=== PATIENT | male | born 1965 | race Caucasian/White ===

== ENCOUNTER → 2018-05-23 08:33 | Outpatient (CLI) | payer BC, SELFPAY ==
[2018-05-23 10:04] LABS: Alanine Aminotransferase 56 U/L (12-78); Albumin Level 4.3 gm/dL (3.4-5.0); Albumin/Globulin Ratio 1.3 (1.1-1.8); Alkaline Phosphatase 70 U/L (46-116); Anion Gap 11.2 mEq/L (5-15); Aspartate Amino Transferase 32 U/L (15-37); Bilirubin,Total 1.4 mg/dL (0.2-1.0); Blood Urea Nitrogen 11 mg/dL (7-18); Calcium 9.2 mg/dL (8.5-10.1); Carbon Dioxide 32 mmol/L (21.0-32.0); Chloride 103 mmol/L (98-107); Chol/HDL Ratio 2.9 (1-3.5); Cholesterol 171 mg/dL (140-200); Creatinine,Serum 0.97 mg/dL (0.70-1.30); Estimated Glomerular Filt Rate 81 ml/min (>60); GFR (African American) 98 ML/MIN (>60); Globulin 3.3 gm/dl (1.3-3.2); Glucose 104 mg/dL (74-106); HDL Cholesterol 59 mg/dL (27-67); LDL Cholesterol 89 mg/dL (0-130); Potassium 4.2 mmoL/L (3.5-5.1); Prostate Specific Ag Screen 1.7 ng/mL (0.0-4.0); Sodium 142 mmol/L (136-145); Thyroid Stimulating Hormone 3.01 uIU/ml (0.358-3.740); Total Protein,Serum 7.6 gm/dL (6.4-8.2); Triglycerides 117 mg/dL (30-200); VLDL Cholesterol 23 mg/dL (0-40)
== END ==
PROVIDERS: Visit Provider Internal Medicine
DX: E78.5 Hyperlipidemia, unspecified (principal); E03.9 Hypothyroidism, unspecified; N40.1 Benign prostatic hyperplasia with lower urinary tract symptoms
CPT/HCPCS: 36415; 80053; 80061; 84443; G0103

== ENCOUNTER → 2020-07-10 09:14 | Outpatient (CLI) | payer BC, SELFPAY ==
[2020-07-10 10:40] LABS: Chloride 101 mmol/L (98-107)
[2020-07-10 10:41] LABS: Potassium 4.2 mmoL/L (3.5-5.1); Sodium 141 mmol/L (136-145)
[2020-07-10 10:43] LABS: Alanine Aminotransferase 28 U/L (12-78); Anion Gap 14.2 mEq/L (5-15); Aspartate Amino Transferase 33 U/L (17-59); Blood Urea Nitrogen 11 mg/dl (9-20); Carbon Dioxide 30 mmol/L (22.0-30.0); Estimated Glomerular Filt Rate 87 ml/min (>60); GFR (African American) 106 ML/MIN (>60)
[2020-07-10 10:44] LABS: Albumin Level 4.6 g/dl (3.5-5.0); Albumin/Globulin Ratio 1.6 (1.1-1.8); Alkaline Phosphatase 47 U/L (38-126); Calcium 9.9 mg/dl (8.4-10.2); Chol/HDL Ratio 2.2 (1-3.5); Cholesterol 140 mg/dl (140-200); Globulin 2.9 g/dL (1.3-3.2); Glucose 102 mg/dl (74-100); HDL Cholesterol 64 mg/dl (40-60); Total Protein,Serum 7.5 g/dl (6.3-8.2); Triglycerides 103 mg/dl (30-150); VLDL Cholesterol 21 mg/dL (0-40)
[2020-07-10 10:55] LABS: Direct LDL Cholesterol 57.82 mg/dL (100-129)
== END ==
PROVIDERS: Visit Provider Internal Medicine
DX: I10 Essential (primary) hypertension (principal); E03.9 Hypothyroidism, unspecified; E78.5 Hyperlipidemia, unspecified
CPT/HCPCS: 36415; 80053; 80061

== ENCOUNTER → 2021-08-21 13:44 | Outpatient (CLI) | payer BC, SELFPAY ==
[2021-08-21 14:12] LABS: Basophils # 0.1 K/mm3 (0-0.2); Eosinophils # 0.1 K/mm3 (0.0-0.4); Eosinophils % 2.5 % (0.1-12.0); Hematocrit 48.1 % (42.0-52.0); Hemoglobin 16.3 g/dL (14.1-18.0); Lymphocytes # 1.5 K/mm3 (0.7-4.5); Lymphocytes % 31.2 % (10-50); Mean Corpuscular HGB Conc 33.9 g/dL (31.8-35.4); Mean Corpuscular Hemoglobin 31.5 pg (27.0-31.2); Mean Corpuscular Volume 92.8 fl (80-94); Mean Platelet Volume 7.5 fl (7.4-10.4); Monocytes # 0.5 K/mm3 (0.1-1.0); Neutrophils # 2.7 K/mm3 (1.8-7.8); Neutrophils % 55.2 % (37.0-80.0); Platelet Count 279 K/mm3 (142-424); Red Blood Count 5.18 M/mm3 (4.60-6.20); Red Cell Distribution Width 12.2 % (11.5-17.5); White Blood Count 4.9 K/mm3 (4.8-10.8)
[2021-08-21 15:46] LABS: Alanine Aminotransferase 24 U/L (12-78); Albumin Level 4.7 g/dl (3.5-5.0); Albumin/Globulin Ratio 1.6 (1.1-1.8); Alkaline Phosphatase 56 U/L (38-126); Anion Gap 12.3 mEq/L (5-15); Aspartate Amino Transferase 33 U/L (17-59); Bilirubin,Total 0.9 mg/dl (0.2-1.3); Blood Urea Nitrogen 9 mg/dl (9-20); Calcium 9.8 mg/dl (8.4-10.2); Carbon Dioxide 30 mmol/L (22.0-30.0); Chloride 103 mmol/L (98-107); Chol/HDL Ratio 2.6 (1-3.5); Cholesterol 148 mg/dl (140-200); Estimated Glomerular Filt Rate 100 ml/min (>60); GFR (African American) 121 ML/MIN (>60); Globulin 2.9 g/dL (1.3-3.2); Glucose 86 mg/dl (74-100); HDL Cholesterol 58 mg/dl (40-60); Potassium 5.3 mmoL/L (3.5-5.1); Sodium 140 mmol/L (136-145); Total Protein,Serum 7.6 g/dl (6.3-8.2); Triglycerides 112 mg/dl (30-150); VLDL Cholesterol 22 mg/dL (0-40)
[2021-08-21 15:57] LABS: Direct LDL Cholesterol 58.74 mg/dL (100-129)
== END ==
PROVIDERS: Visit Provider Internal Medicine
DX: E03.9 Hypothyroidism, unspecified (principal); E78.5 Hyperlipidemia, unspecified; I10 Essential (primary) hypertension
CPT/HCPCS: 36415; 80053; 80061; 85025

== ENCOUNTER → 2021-11-04 15:11 | Outpatient (CLI) | payer BC, SELFPAY ==
--- NOTE | 2021-11-04 15:21 | XR_ITS ---
PROCEDURE: XR SHOULDER LT MIN 2V CLINICAL INDICATION: LT SHOULDER PAIN COMPARISON: No exams were available for comparison FINDINGS: No fracture or dislocation. No lytic or blastic change. There is normal mineralization. The joint spaces are well-preserved. No significant degenerative/arthritic changes. No erosive changes evident. Other findings:None. IMPRESSION: No acute findings. Dictated by: Kartik Lawrence MD 11/04/2021 15:34 Kartik Lawrence MD in [place] 11/04/2021 15:34
== END ==
PROVIDERS: PCP Internal Medicine; Visit Provider Internal Medicine
DX: M25.512 Pain in left shoulder (principal)
CPT/HCPCS: 73030

== ENCOUNTER 2021-12-16 15:00 | Outpatient (RCR) | payer BC, SELFPAY ==
--- NOTE | 2021-11-17 16:14 | HMH.OTOPEV ---
OT Inpatient Evaluation Rehab OT Outpatient Eval Start: 11/17/21 15:45 Freq: Status: Active Protocol: Document 11/17/21 15:45 RMARSHALL (Rec: 11/17/21 16:14 [id number] Electronically Signed By Lee Rubio OT 11/17/21 15:45 Outpatient Therapy Subjective History Subjective History Pt is a 56 year old male who reports to therapy for initial evaluation to left shoulder. Pt reports in June of 2021 he began having pain in the anterior aspect of left shoulder. 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 Pt explains he was able to rest the shoulder temporarily and pain improved. However, once he went back to [place] his pain returned quickly. Pt complains of pain radiating down to bicep area and decreased AROM. He does not recall a specific injury causing the pain to begin initially. Pt does demonstrate with decreased AROM and strength of left shoulder. Pt will continue to be seen twice a week in order to address deficits. Chief Complaint Pain,Stiff,Weakness Symptom Type Ache,Throb,Sharp,Dull Symptoms Relieved By Rest/Positioning,Prescription Meds Symptoms Aggravated By Physical Activity,Lifting Prior Functional Limitations None Current Functional Limitations Reaching,Lifting,Housework, Sleeping,Recreation Activity Symptom Description Intermittent,Activity Dependent Level of pain today (0-10) 0 Pain scale - at its best (0-10) 0 Pain scale - at its worst (0-10) 8 Shoulder/Elbow Eval Shoulder Objective Measurements Shoulder ROM Left Shoulder Abduction Active Range of 140 degrees Motion (degrees) Shoulder Flexion Active Range of Motion 130 degrees (degrees) Query Text: Shoulder External Rotation Active Range 70 degrees of Motion (degrees) Shoulder Internal Rotation Active Range 48 degrees of Motion (degrees) Shoulder MMT Shoulder Abduction Strength Grade 3 Fair Shoulder Extension Strength Grade 3 Fair Shoulder Flexion Strength Grade 3 Fair
== END 2021-12-16 15:05 | disposition home or self-care (01) ==
LOC: OT 15:00
PROVIDERS: PCP Internal Medicine; Visit Provider Internal Medicine
DX: M75.102 Unspecified rotator cuff tear or rupture of left shoulder, not specified as traumatic (principal)
CPT/HCPCS: 97010; 97014; 97110; 97140; 97166; G0283

== ENCOUNTER → 2022-02-19 12:56 | Outpatient (CLI) | payer BC, SELFPAY ==
[2022-02-19 14:41] LABS: Alanine Aminotransferase 30 U/L (12-78); Albumin Level 4.8 g/dl (3.5-5.0); Albumin/Globulin Ratio 1.8 (1.1-1.8); Alkaline Phosphatase 54 U/L (38-126); Anion Gap 12.8 mEq/L (5-15); Aspartate Amino Transferase 35 U/L (17-59); Bilirubin,Total 1.4 mg/dl (0.2-1.3); Blood Urea Nitrogen 14 mg/dl (9-20); Calcium 9.4 mg/dl (8.4-10.2); Carbon Dioxide 30 mmol/L (22.0-30.0); Chloride 100 mmol/L (98-107); Chol/HDL Ratio 2.8 (1-3.5); Cholesterol 147 mg/dl (140-200); Estimated Glomerular Filt Rate 87 ml/min (>60); GFR (African American) 105 ML/MIN (>60); Globulin 2.6 g/dL (1.3-3.2); Glucose 80 mg/dl (74-100); HDL Cholesterol 53 mg/dl (40-60); Potassium 4.8 mmoL/L (3.5-5.1); Sodium 138 mmol/L (136-145); Total Protein,Serum 7.4 g/dl (6.3-8.2); Triglycerides 77 mg/dl (30-150); VLDL Cholesterol 15 mg/dL (0-40)
[2022-02-19 14:52] LABS: Direct LDL Cholesterol 63.45 mg/dL (100-129)
[2022-02-19 15:12] LABS: Prostate Specific Ag Screen 1.8 ng/ml (0.0-4.0); Thyroid Stimulating Hormone 1.99 uIU/mL (0.465-4.68)
== END ==
PROVIDERS: Visit Provider Internal Medicine
DX: E03.9 Hypothyroidism, unspecified (principal); E78.5 Hyperlipidemia, unspecified; N40.1 Benign prostatic hyperplasia with lower urinary tract symptoms; Z12.5 Encounter for screening for malignant neoplasm of prostate
CPT/HCPCS: 80053; 80061; 84443; G0103

== ENCOUNTER → 2022-08-23 12:40 | Outpatient (CLI) | payer BC, SELFPAY ==
[2022-08-23 15:51] LABS: Alanine Aminotransferase 35 U/L (12-78); Albumin Level 4.4 g/dl (3.5-5.0); Albumin/Globulin Ratio 1.6 (1.1-1.8); Alkaline Phosphatase 69 U/L (38-126); Anion Gap 14.2 mEq/L (5-15); Aspartate Amino Transferase 33 U/L (17-59); Bilirubin,Total 0.5 mg/dl (0.2-1.3); Blood Urea Nitrogen 11 mg/dl (9-20); Carbon Dioxide 30 mmol/L (22.0-30.0); Chloride 98 mmol/L (98-107); Estimated Glomerular Filt Rate 99 ml/min (>60); GFR (African American) 120 ML/MIN (>60); Globulin 2.8 g/dL (1.3-3.2); Potassium 4.2 mmoL/L (3.5-5.1); Sodium 138 mmol/L (136-145); Total Protein,Serum 7.2 g/dl (6.3-8.2)
[2022-08-23 16:03] LABS: Direct LDL Cholesterol 79.87 mg/dL (100-129)
[2022-08-23 16:28] LABS: Calcium 9.1 mg/dl (8.4-10.2); Cholesterol 166 mg/dl (140-200); Glucose 80 mg/dl (74-100); HDL Cholesterol 55 mg/dl (40-60); Triglycerides 144 mg/dl (30-150); VLDL Cholesterol 29 mg/dL (0-40)
== END ==
PROVIDERS: PCP Internal Medicine; Visit Provider Internal Medicine
DX: I10 Essential (primary) hypertension (principal); E78.5 Hyperlipidemia, unspecified
CPT/HCPCS: 80053; 80061

== ENCOUNTER 2022-09-30 08:09 | Day surgery (SDC) | payer BC, SELFPAY ==
[2022-09-09 13:57] VITALS: BMI 22.1
[2022-09-30 08:34] VITALS: BP 144/88; PULSE 57; RESP 18; TEMP 36.4; O2SAT 100
[2022-09-30 09:30] VITALS: O2SAT 100
--- NOTE | 2022-09-30 09:43 | HMH.SCOPE ---
Procedure: Date: 09/30/22 Patient Date of :: 1965 Procedure Performed:: Screening colonoscopy Indications:: Colon cancer screening Performing Provider:: Twan Thomson MD Referring Provider:: Jeremy Odonnell MD Sedation:: Propofol Procedure:: After placing the patient in the left lateral decubitus position, the colonoscopy was gently inserted into the rectum and under direct visualization advanced to the cecum which was identified by transillumination in the right lower quadrant, identification of the ileocecal valve, appendiceal orifice, and cecal strap. Color, texture, mucosa, and anatomy of the colon were carefully examined with the scope. Findings:: Anal canal: normal Rectum: normal Sigmoid colon: normal without polyps or inflammatory changes Descending colon: normal without polyps or inflammatory changes Splenic flexure: normal Transverse colon: normal without polyps or inflammatory changes Hepatic flexure: normal Ascending colon: normal without polyps or inflammatory changes Cecum: normal Terminal ileum: not visualized Impression: Normal colonoscopy Recommendations:: Follow up exam in about TEN years or so, sooner if clinically indicated. Complications:: None Estimated blood obtained (mL): 0
[2022-09-30 09:46] VITALS: BP 84/51; PULSE 68; RESP 18; TEMP 36.4; O2SAT 95
[2022-09-30 09:56] VITALS: BP 118/75; PULSE 61; RESP 18; O2SAT 96
[2022-09-30 10:06] VITALS: BP 119/73; PULSE 57; RESP 18; O2SAT 97
[2022-09-30 10:30] VITALS: BP 116/73; PULSE 55; RESP 18; O2SAT 98
--- NOTE | 2022-09-30 10:32 | P.PN_ITS ---
[facility] Medical History History of varicocele Hyperlipidemia Hypertension Hypothyroid Surgical History History of colonoscopy Family History Other Family history of Alzheimer's disease Family history of diabetes mellitus type II Family history of hyperlipidemia Family history of hypertension Social History (Updated 09/30/22 @ 08:40 by Dolores Ramirez, RN) Smoking Status: Never smoker alcohol intake: current substance use type: denies use current occupational status: employed and retired Travel in the last 8 weeks: Inside the [place] household members: spouse housing: house marital status: caffeine: Yes do you feel safe at home: Yes victim of physical abuse: No victim of emotional abuse: No victim of sexual abuse: No would you like helpful sources: No [facility] Anesthesia Checklist Patient Identification Patient Identification: Verbal (Name & ) Structural Data Admitted From: Home Planned Operative Procedure/s: colonoscopy Consent for Planned Operative Procedure(s) Verified: Yes Airway Assessment C-Spine Mobility Assessed: Yes TMJ Mobility Assessed: Yes Dentition: Good Dentition Neurological Assessment Level of Consciousness: Awake, Alert and Appropriate Anesthesia Plan Anesthesia Risk discussed: Yes Anesthesia Plan: Verified ASA Class: II Anesthesia Type: MAC
== END 2022-09-30 10:39 | disposition home or self-care (01) ==
PROVIDERS: PCP Internal Medicine; Visit Provider Internal Medicine Gastroenterology
PROC: 0DJD8ZZ Inspection of Lower Intestinal Tract, Via Natural or Artificial Opening Endoscopic (ICD-10-PCS; CPT 45378; principal; 2022-09-30 09:30)
DX: Z12.11 Encounter for screening for malignant neoplasm of colon (principal); Z79.899 Other long term (current) drug therapy
CPT/HCPCS: 45378

== ENCOUNTER → 2023-02-22 12:09 | Outpatient (CLI) | payer BC, SELFPAY ==
[2023-02-22 13:17] LABS: Basophils # 0.1 K/mm3 (0-0.2); Basophils % 1.4 % (0.1-2.0); Eosinophils # 0.1 K/mm3 (0.0-0.4); Eosinophils % 2.4 % (0.1-12.0); Hematocrit 48.2 % (42.0-52.0); Hemoglobin 16.1 g/dL (14.1-18.0); Lymphocytes # 1.3 K/mm3 (0.7-4.5); Lymphocytes % 27.2 % (10-50); Mean Corpuscular HGB Conc 33.5 g/dL (31.8-35.4); Mean Corpuscular Hemoglobin 30.8 pg (27.0-31.2); Mean Corpuscular Volume 92.1 fl (80-94); Monocytes # 0.5 K/mm3 (0.1-1.0); Monocytes % 9.7 % (1.7-9.3); Neutrophils # 2.8 K/mm3 (1.8-7.8); Neutrophils % 59.3 % (37.0-80.0); Platelet Count 293 K/mm3 (142-424); Red Blood Count 5.23 M/mm3 (4.60-6.20); Red Cell Distribution Width 12.6 % (11.5-17.5); White Blood Count 4.7 K/mm3 (4.8-10.8)
[2023-02-22 14:10] LABS: Alanine Aminotransferase 28 U/L (12-78); Albumin Level 4.9 g/dl (3.5-5.0); Albumin/Globulin Ratio 1.8 (1.1-1.8); Alkaline Phosphatase 54 U/L (38-126); Anion Gap 16.3 mEq/L (5-15); Aspartate Amino Transferase 37 U/L (17-59); Bilirubin,Total 1.3 mg/dl (0.2-1.3); Blood Urea Nitrogen 13 mg/dl (9-20); Calcium 9.1 mg/dl (8.4-10.2); Carbon Dioxide 28 mmol/L (22.0-30.0); Chloride 99 mmol/L (98-107); Cholesterol 151 mg/dl (140-200); Estimated Glomerular Filt Rate 99 ml/min (>60); GFR (African American) 120 ML/MIN (>60); Globulin 2.8 g/dL (1.3-3.2); Glucose 76 mg/dl (74-100); HDL Cholesterol 51 mg/dl (40-60); Potassium 4.3 mmoL/L (3.5-5.1); Sodium 139 mmol/L (136-145); Total Protein,Serum 7.7 g/dl (6.3-8.2); Triglycerides 107 mg/dl (30-150); VLDL Cholesterol 21 mg/dL (0-40)
[2023-02-22 14:22] LABS: Direct LDL Cholesterol 73.26 mg/dL (100-129)
[2023-02-22 14:41] LABS: Prostate Specific Ag Screen 2.1 ng/ml (0.0-4.0); Thyroid Stimulating Hormone 2.18 uIU/mL (0.465-4.68)
== END ==
PROVIDERS: PCP Internal Medicine; Visit Provider Internal Medicine
DX: E03.9 Hypothyroidism, unspecified (principal); I10 Essential (primary) hypertension; E78.5 Hyperlipidemia, unspecified; N40.1 Benign prostatic hyperplasia with lower urinary tract symptoms; Z12.5 Encounter for screening for malignant neoplasm of prostate
CPT/HCPCS: 80053; 80061; 84443; 85025; G0103

== ENCOUNTER → 2023-09-07 13:43 | Outpatient (CLI) | payer BC, SELFPAY ==
[2023-09-07 16:30] LABS: Alanine Aminotransferase 32 U/L (12-78); Albumin Level 4.9 g/dl (3.5-5.0); Albumin/Globulin Ratio 1.6 (1.1-1.8); Alkaline Phosphatase 58 U/L (38-126); Anion Gap 16.7 mEq/L (5-15); Aspartate Amino Transferase 37 U/L (17-59); Blood Urea Nitrogen 12 mg/dl (9-20); Calcium 9.6 mg/dl (8.4-10.2); Carbon Dioxide 28 mmol/L (22.0-30.0); Chloride 98 mmol/L (98-107); Chol/HDL Ratio 2.8 (1-3.5); Cholesterol 157 mg/dl (140-200); Estimated Glomerular Filt Rate 99 ml/min (>60); GFR (African American) 120 ML/MIN (>60); Globulin 3.1 g/dL (1.3-3.2); Glucose 79 mg/dl (74-100); HDL Cholesterol 56 mg/dl (40-60); Potassium 4.7 mmoL/L (3.5-5.1); Sodium 138 mmol/L (136-145); Triglycerides 89 mg/dl (30-150); VLDL Cholesterol 18 mg/dL (0-40)
[2023-09-07 16:41] LABS: Direct LDL Cholesterol 76.61 mg/dL (100-129)
== END ==
PROVIDERS: PCP Internal Medicine; Visit Provider Internal Medicine
DX: E03.9 Hypothyroidism, unspecified (principal); E78.5 Hyperlipidemia, unspecified; I10 Essential (primary) hypertension
CPT/HCPCS: 80053; 80061

== ENCOUNTER 2024-03-16 16:52 | Outpatient (CLI) | payer BC, SELFPAY ==
[2024-03-16 17:56] LABS: Basophils # 0.1 K/mm3 (0-0.2); Basophils % 1.6 % (0.1-2.0); Eosinophils # 0.1 K/mm3 (0.0-0.4); Eosinophils % 2.4 % (0.1-12.0); Hematocrit 47.5 % (42.0-52.0); Hemoglobin 15.8 g/dL (14.1-18.0); Lymphocytes # 1.4 K/mm3 (0.7-4.5); Lymphocytes % 29.3 % (10-50); Mean Corpuscular HGB Conc 33.3 g/dL (31.8-35.4); Mean Corpuscular Hemoglobin 31.3 pg (27.0-31.2); Mean Platelet Volume 8.1 fl (7.4-10.4); Monocytes # 0.4 K/mm3 (0.1-1.0); Monocytes % 9.6 % (1.7-9.3); Neutrophils # 2.6 K/mm3 (1.8-7.8); Neutrophils % 57.1 % (37.0-80.0); Platelet Count 267 K/mm3 (142-424); Red Blood Count 5.06 M/mm3 (4.60-6.20); Red Cell Distribution Width 13.2 % (11.5-17.5); White Blood Count 4.6 K/mm3 (4.8-10.8)
[2024-03-16 18:08] LABS: Alanine Aminotransferase 33 U/L (12-78); Albumin Level 5.1 g/dl (3.5-5.0); Albumin/Globulin Ratio 1.8 (1.1-1.8); Alkaline Phosphatase 60 U/L (38-126); Anion Gap 15.4 mEq/L (5-15); Aspartate Amino Transferase 39 U/L (17-59); Bilirubin,Total 1.4 mg/dl (0.2-1.3); Blood Urea Nitrogen 13 mg/dl (9-20); Carbon Dioxide 29 mmol/L (22.0-30.0); Chloride 101 mmol/L (98-107); Chol/HDL Ratio 2.3 (1-3.5); Cholesterol 175 mg/dl (140-200); Estimated Glomerular Filt Rate 86 ml/min (>60); GFR (African American) 104 ML/MIN (>60); Globulin 2.8 g/dL (1.3-3.2); Glucose 74 mg/dl (74-100); HDL Cholesterol 77 mg/dl (40-60); Potassium 4.4 mmoL/L (3.5-5.1); Sodium 141 mmol/L (136-145); Total Protein,Serum 7.9 g/dl (6.3-8.2); Triglycerides 86 mg/dl (30-150); VLDL Cholesterol 17 mg/dL (0-40)
[2024-03-16 18:28] LABS: Direct LDL Cholesterol 81.88 mg/dL (100-129)
[2024-03-16 18:48] LABS: Prostate Specific Ag Screen 2.6 ng/ml (0.0-4.0); Thyroid Stimulating Hormone 2.35 uIU/mL (0.465-4.68)
== END 2024-03-16 23:59 | disposition home or self-care (01) ==
LOC: LAB.DROPOF 16:53
PROVIDERS: PCP Internal Medicine; Visit Provider Internal Medicine
DX: I10 Essential (primary) hypertension (principal); E78.5 Hyperlipidemia, unspecified; E03.9 Hypothyroidism, unspecified; M72.0 Palmar fascial fibromatosis [Dupuytren]; Z12.5 Encounter for screening for malignant neoplasm of prostate
CPT/HCPCS: 80053; 80061; 84443; 85025; G0103

== ENCOUNTER 2024-09-20 17:08 | Outpatient (CLI) | payer BC, SELFPAY ==
[2024-09-20 16:53] LABS: Alanine Aminotransferase 37 U/L (12-78); Albumin Level 4.8 g/dl (3.5-5.0); Albumin/Globulin Ratio 2.1 (1.1-1.8); Alkaline Phosphatase 51 U/L (38-126); Anion Gap 14.3 mEq/L (5-15); Aspartate Amino Transferase 42 U/L (17-59); Bilirubin,Total 1.1 mg/dl (0.2-1.3); Blood Urea Nitrogen 13 mg/dl (9-20); Calcium 9.5 mg/dl (8.4-10.2); Carbon Dioxide 29 mmol/L (22.0-30.0); Chloride 100 mmol/L (98-107); Chol/HDL Ratio 2.5 (1-3.5); Cholesterol 144 mg/dl (140-200); Estimated Glomerular Filt Rate 76 ml/min (>60); GFR (African American) 92 ML/MIN (>60); Globulin 2.3 g/dL (1.3-3.2); Glucose 71 mg/dl (74-100); HDL Cholesterol 58 mg/dl (40-60); Potassium 4.3 mmoL/L (3.5-5.1); Sodium 139 mmol/L (136-145); Total Protein,Serum 7.1 g/dl (6.3-8.2); Triglycerides 93 mg/dl (30-150); VLDL Cholesterol 19 mg/dL (0-40)
[2024-09-20 17:03] LABS: Direct LDL Cholesterol 66.02 mg/dL (100-129)
== END 2024-09-20 23:59 | disposition home or self-care (01) ==
LOC: LAB.DROPOF 17:09
PROVIDERS: PCP Internal Medicine; Visit Provider Internal Medicine
DX: I10 Essential (primary) hypertension (principal); E78.5 Hyperlipidemia, unspecified
CPT/HCPCS: 80053; 80061

== ENCOUNTER 2025-03-21 14:32 | Outpatient (CLI) | payer BC, SELFPAY ==
[2025-03-21 12:10] LABS: Basophils # 0.1 K/mm3 (0-0.2); Basophils % 1.4 % (0.1-2.0); Eosinophils # 0.1 Kmm3 (0.0-0.4); Hematocrit 44.8 % (42.0-52.0); Hemoglobin 15.5 g/dL (14.1-18.0); Lymphocytes # 1.3 K/mm3 (0.7-4.5); Lymphocytes % 25.2 % (10-50); Mean Corpuscular HGB Conc 34.6 g/dL (31.8-35.4); Mean Corpuscular Hemoglobin 30.6 pg (27.0-31.2); Mean Corpuscular Volume 88.5 fl (80-94); Mean Platelet Volume 9.6 fl (7.4-10.4); Monocytes # 0.6 K/mm3 (0.1-1.0); Monocytes % 12.3 % (1.7-9.3); Neutrophils % 58.7 % (37.0-80.0); Nucleated Red Blood Cells # 0 10^3/uL; Nucleated Red Blood Cells % 0 %; Platelet Count 246 K/mm3 (142-424); Red Blood Count 5.06 M/mm3 (4.60-6.20); Red Cell Distribution Width-SD 38.3 fL; White Blood Count 5.1 K/mm3 (4.8-10.8)
[2025-03-21 12:37] LABS: Alanine Aminotransferase 40 U/L (12-78); Alkaline Phosphatase 57 U/L (38-126); Anion Gap 9.2 mEq/L (5-15); Aspartate Amino Transferase 42 U/L (17-59); Bilirubin,Total 1.4 mg/dl (0.2-1.3); Calcium 9.9 mg/dl (8.4-10.2); Carbon Dioxide 28 mmol/L (22.0-30.0); Chloride 103 mmol/L (98-107); Glucose 76 mg/dl (74-100); HDL Cholesterol 55 mg/dl (40-60); Potassium 4.2 mmoL/L (3.5-5.1); Sodium 136 mmol/L (136-145)
[2025-03-21 12:39] LABS: Albumin Level 5.1 g/dl (3.5-5.0); Albumin/Globulin Ratio 2.3 (1.1-1.8); Blood Urea Nitrogen 16 mg/dl (9-20); Chol/HDL Ratio 2.8 (1-3.5); Cholesterol 156 mg/dl (140-200); Estimated Glomerular Filt Rate 98 ml/min (>60); GFR (African American) 119 ML/MIN (>60); Globulin 2.2 g/dL (1.3-3.2); Total Protein,Serum 7.3 g/dl (6.3-8.2); Triglycerides 122 mg/dl (30-150); VLDL Cholesterol 24 mg/dL (0-40)
[2025-03-21 12:48] LABS: Direct LDL Cholesterol 64.22 mg/dL (100-129)
[2025-03-21 13:06] LABS: Prostate Specific Ag Screen 2.6 ng/ml (0.0-4.0); Thyroid Stimulating Hormone 2.52 uIU/mL (0.465-4.68)
== END 2025-03-21 23:59 | disposition home or self-care (01) ==
LOC: LAB.DROPOF 14:32
PROVIDERS: PCP Internal Medicine; Visit Provider Internal Medicine
DX: Z12.5 Encounter for screening for malignant neoplasm of prostate (principal); E78.5 Hyperlipidemia, unspecified; E03.9 Hypothyroidism, unspecified; I10 Essential (primary) hypertension
CPT/HCPCS: 80053; 80061; 84443; 85025; G0103

== ENCOUNTER 2025-09-23 13:12 | Outpatient (CLI) | payer BC, SELFPAY ==
[2025-09-23 14:14] LABS: Alanine Aminotransferase 30 U/L (12-78); Albumin Level 4.8 g/dl (3.5-5.0); Albumin/Globulin Ratio 1.6 (1.1-1.8); Alkaline Phosphatase 61 U/L (38-126); Anion Gap 11.2 mEq/L (5-15); Aspartate Amino Transferase 32 U/L (17-59); Bilirubin,Total 1.0 mg/dl (0.2-1.3); Blood Urea Nitrogen 12 mg/dl (9-20); Calcium 9.3 mg/dl (8.4-10.2); Carbon Dioxide 29 mmol/L (22.0-30.0); Chloride 100 mmol/L (98-107); Cholesterol 151 mg/dl (140-200); Creatinine,Serum 0.90 mg/dl (0.66-1.25); Estimated Glomerular Filt Rate 86 ml/min (>60); GFR (African American) 104 ML/MIN (>60); Globulin 3.0 g/dL (1.3-3.2); Glucose 85 mg/dl (74-100); HDL Cholesterol 50 mg/dl (40-60); Potassium 4.2 mmoL/L (3.5-5.1); Sodium 136 mmol/L (136-145); Total Protein,Serum 7.8 g/dl (6.3-8.2); Triglycerides 109 mg/dl (30-150)
== END 2025-09-23 23:59 | disposition home or self-care (01) ==
LOC: LAB.DROPOF 13:13
PROVIDERS: PCP Internal Medicine; Visit Provider Internal Medicine
DX: E78.5 Hyperlipidemia, unspecified (principal); I10 Essential (primary) hypertension
CPT/HCPCS: 80053; 80061